=== PATIENT | male | born 1955 | race Caucasian/White ===

== ENCOUNTER 2023-10-05 22:14 | Observation (INO) | payer MEDICARE, SELFPAY ==
--- NOTE | ~2023-10-05 | CT_ITS ---
EXAMINATION: CTA brain carotid DATE: 10/05/2023 22:35 INDICATION: Stroke. TECHNIQUE: Computed tomographic angiography (CTA) of the head was performed with 100 mL Omnipaque-350 intravenous contrast. CTA of the neck was performed with intravenous contrast. Automated exposure co ntrol and iterative reconstruction technique were employed. The dose-length product was 1218.82 mGy-c m. Maximum intensity projection and volume rendered 3D-reconstructions were created by the technologi st on a separate workstation. COMPARISON: Head CT 10/05/2023 FINDINGS: HEAD CTA: There are scattered areas of low attenuation in the cerebral white matter, which is within normal limits for the patient's age. There is no intracranial hemorrhage, acute infarction, or abnorm al intracranial mass lesion. The ventricles are normal in size. The orbits are normal. The paranasal sinuses are clear. The mastoid air cells are normal. Left vertebral artery is dominant. There is no s ignificant stenosis of basilar artery or the posterior cerebral arteries. There is no significant levon nosis of the intracranial internal carotid arteries or anterior or middle middle cerebral arteries. A nterior communicating artery is normal. Posterior communicating arteries are not identified. There is no aneurysm. NECK CTA: The lungs demonstrate mild atelectasis. There are no pathologically enlarged lymph nodes. T here is no significant stenosis of the vertebral arteries. There is plaque in the proximal internal c arotid arteries. There is 0% stenosis of the proximal right internal carotid artery relative to tres l distal artery lumen diameter (NASCET criteria). There is 0% stenosis of the proximal left internal carotid artery relative to normal distal artery lumen diameter. There is moderate cervical spondylosi s. IMPRESSION: 1. Normal aging brain. 2. No aneurysm or significant intracranial arterial stenosis. 3. 0% stenosis of the proximal internal carotid arteries relative to normal distal artery lumen diame ters (NASCET criteria). Reviewed, dictated and finalized at location A. IMPRESSION: 1. Normal aging brain. 2. No aneurysm or significant intracranial arterial stenosis. 3. 0% stenosis of the proximal internal carotid arteries relative to normal dis nav artery lumen diameters (NASCET criteria).
--- NOTE | ~2023-10-05 | XR_ITS ---
XR chest 1V portable DATE: 10/05/2023 22:59 INDICATION: Pain TECHNIQUE: Portable upright AP chest on 10/05/2023 at 2254 hours COMPARISON: None FINDINGS: Heart size is likely within normal limits considering magnification associated with AP proj ection. No pulmonary infiltrate or consolidation, pleural effusion or pulmonary vascular congestion or pneumo thorax is evident. Osteopenia. IMPRESSION: Limited portable study revealing no active cardiopulmonary disease Reviewed, dictated and finalized at location B.
--- NOTE | ~2023-10-05 | CT_ITS ---
EXAMINATION: CT brain wo con DATE: 10/05/2023 22:34 INDICATION: Stroke. TECHNIQUE: Computed tomography (CT) of the head was performed without intravenous contrast. The mA wa s adjusted according to patient size. Iterative reconstruction technique was employed. The dose-lengt h product was 681.00 mGy-cm. COMPARISON: None FINDINGS: There are scattered areas of low attenuation in the cerebral white matter, which is within normal limits for the patient's age. There is no intracranial hemorrhage, acute infarction, or abnorm al intracranial mass lesion. The ventricles are normal in size. The orbits are normal. The paranasal sinuses are clear. The mastoid air cells are normal. IMPRESSION: 1. Normal aging brain. Reviewed, dictated and finalized at location A. IMPRESSION: 1. Normal aging brain.
--- NOTE | ~2023-10-05 | MR_ITS ---
MRI of the brain Clinical History: CVA Technique: Axial and sagittal T1-weighted images were acquired. These were followed by axial T2-weigh ajnell, diffusion weighted, gradient, and FLAIR images. Following intravenous administration of 20 cc Mu ltiHance gadolinium, T1-weighted fat-sat imaging was performed in the axial and coronal planes. Findings: There is no acute infarct, intracranial hemorrhage, or mass lesion. There are mild to moder ate chronic microvascular ischemic changes in the periventricular white matter bilaterally. Ventricles and subarachnoid spaces are mildly dilated. Orbits are unremarkable. Paranasal sinuses and mastoid air cells are clear. Major intracranial flow voids are intact. Sagittal midline structures are intact. No abnormal postcontrast enhancement identified. IMPRESSION: No acute infarct, intracranial hemorrhage, or mass lesion. Moderate chronic microvascular ischemic change and mild generalized atrophy. Reviewed, dictated and finalized at [facility].
--- NOTE | 2023-10-05 22:17 | ECG_ITS ---
Measurements Intervals [place] Rate: 64 P: 54 VA: 221 QRS: -16 QRSD: 89 T: 13 QT: 406 QTc: 420 Interpretive Statements SINUS RHYTHM WITH FIRST DEGREE AV BLOCK SUSPECT PREVIOUS INFERIOR WALL NE ABNORMAL ECG NO PREVIOUS ECG AVAILABLE FOR COMPARISON Electronically Signed On 10-06-2023 12:57:08 CDT by Valentin Hester M.D.
[2023-10-05 22:28] LABS: Basophils Percent Auto 0.4 % (0.2-1.2); Eosinophils Absolute Auto 0.1 K/mm3 (0-0.3); Eosinophils Percent Auto 0.9 % (0-4.4); Hematocrit 42.3 % (42.0-52.0); Hemoglobin 14.2 g/dL (14.0-18.0); Immature Granulocyte Absolute 0.02 K/mm3 (0.00-0.031); Immature Granulocyte Percent A 0.4 % (0-0.5); Lymphocytes Absolute Auto 1.88 K/mm3 (0.9-3.2); Lymphocytes Percent Auto 33.1 % (18.3-44.2); Mean Corpuscular HGB Conc 33.6 g/dl (32-36); Mean Corpuscular Hemoglobin 28.5 pg (26-34); Mean Corpuscular Volume 84.8 fl (80-100); Mean Platelet Volume 8.7 fl (7.4-10.4); Monocytes Absolute Auto 0.7 K/mm3 (0.1-0.6); Monocytes Percent Auto 12.5 % (2.6-8.5); Neutrophils Percent Auto 52.7 % (45.5-73.1); Platelet Count Result 295 k/mm3 (150-375); Red Blood Count 4.99 M/mm3 (4.6-6.20); Red Cell Distribution Width 13.2 % (11.5-14.5); White Blood Count 5.7 K/mm3 (4.5-10.0)
[2023-10-05 22:38] VITALS: BP 176/67; PULSE 65; RESP 18; O2SAT 97
[2023-10-05 22:39] LABS: Prothrombin Time 13.4 Seconds (11.1-14.7)
[2023-10-05 22:40] LABS: Partial Thromboplastin Time 25.2 Seconds (22.3-36.8)
[2023-10-05 22:41] LABS: Alanine Aminotransferase 26 U/L (6-50); Albumin Level 4.2 g/dL (3.5-5.1); Alkaline Phosphatase 102 U/L (38-126); Anion Gap 9 mmol/L (4-12); Aspartate Amino Transferase 32 U/L (17-59); Bilirubin,Total 0.5 mg/dL (0.2-1.3); Blood Urea Nitrogen 24 mg/dL (9-20); Calcium 9.4 mg/dL (8.4-10.2); Carbon Dioxide 23 mmol/L (22-30); Chloride 105 mmol/L (98-107); Estimated Glomerular Filt Rate 50; Glucose 164 mg/dL (65-110); Sodium 137 mmol/L (137-145)
[2023-10-05 22:45] VITALS: BP 176/67; PULSE 68; RESP 16; O2SAT 95
[2023-10-05 22:52] VITALS: BP 154/71; PULSE 63; RESP 18; TEMP 36.2; O2SAT 97
[2023-10-05 22:53] LABS: Troponin I < 0.012 ng/mL (0.000-0.034)
[2023-10-05 23:50] VITALS: BP 155/66; PULSE 62; RESP 15; O2SAT 98
[2023-10-06] VITALS (9 sets, daily range): BP systolic 112–143; BP diastolic 62–84; PULSE 56–72; RESP 15–17; TEMP 36.5–36.6; O2SAT 95–100; BMI 32.3
[2023-10-06 00:44] LABS: Appearance Urine Clear (Clear); Bilirubin Urine Negative (Negative); Blood Urine Negative (Negative); Color Urine Yellow (Yellow); Glucose Urine UA 3+ mg/dL (Negative); Ketones Urine Negative (Negative); Leukocyte Esterase Ur Negative LEU/UL (Negative); Nitrate Urine Negative (Negative); Protein Urine Negative (Negative); Urobilinogen Urine 0.2 mg/dL (<2.0); pH Urine 5.5 (5.0-9.0)
[2023-10-06 01:05] LABS: Add Urine Microscopic? NO
[2023-10-06 01:19] LABS: Influenza A QL RT-PCR Negative (Negative); Influenza B QL RT-PCR Negative (Negative); RSV RNA, RT-PCR Negative (Negative); SARS-CoV-2 RNA PCR Negative (Negative)
--- NOTE | 2023-10-06 01:45 | ED.GENADULT ---
HPI - General Adult General Chief complaint: Neuro Symptoms/Deficit Stated complaint: ams Time Seen by Provider: 10/05/23 23:18 History of Present Illness HPI narrative: This is a 68-year-old male presenting for difficulty speaking. The patient states that last night he barely slept. He then had a [address] back home today. Then when he got home he took a [employer]. At 10:00 p.m.(LKK) he was trying to read his Rosemarie but seemed confused. He was also having trouble finding words. He became anxious and called EMS was brought hospital for evaluation. On arrival patient was having intermittent word-finding difficulty. No other neurologic deficits. Patient is complaining of headache. Denies use of drugs or alcohol. Related Data Home Medications Medication Instructions Recorded Confirmed Jardiance 25 10/05/23 Lantus U-100 Insulin 10/05/23 gabapentin 400 mg capsule 400 mg 10/05/23 lisinopril 40 mg tablet 40 mg PO DAILY 10/05/23 10/05/23 metformin 1,000 mg tablet 1,000 mg PO DAILY 10/05/23 10/05/23 omeprazole 20 mg capsule,delayed mg 10/05/23 10/05/23 release propranolol 60 mg tablet 60 mg PO Q12H 10/05/23 10/05/23 simvastatin 20 mg tablet 20 mg PO DAILY 10/05/23 10/05/23 Allergies Allergy/AdvReac Type Severity Reaction Status Date / Time No Known Allergies Allergy Verified 10/06/23 01:44 [facility] Past Medical History Medical History Diabetes Hypertension Exam Narrative: APPEARANCE: No apparent distress. Head: atraumatic. EYES: EOMI, NOSE: Atraumatic NECK: Trachea midline RESPIRATORY: No increased rate of breathing CARDIOVASCULAR: RRR, ABDOMINAL: Non-distended MUSCULOSKELETAl: No obvious deformities NEURO: Alert. Cranial nerves 2-12 grossly intact. Sensation light touch, motor function cerebellar function intact for 4 extremities. SKIN:: Warm, dry. Normal color PSYCHIATRIC: Normal affect NIH Stroke Scale/Score (NIHSS) from [email or web address] on 10/06/2023 All calculations should be rechecked by clinician prior to use RESULT SUMMARY: 2 points NIH Stroke Scale INPUTS: 1A: Level of consciousness ?> 0 = Alert; keenly responsive 1B: Ask month and age ?> 1 = 1 question right 1C: 'Blink eyes' & 'squeeze hands' ?> 0 = Performs both tasks 2: Horizontal extraocular movements ?> 0 = Normal 3: Visual greenfield ?> 0 = No visual loss 4: Facial palsy ?> 0 = Normal symmetry 5A: Left arm motor drift ?> 0 = No drift for 10 seconds 5B: Right arm motor drift ?> 0 = No drift for 10 seconds 6A: Left leg motor drift ?> 0 = No drift for 5 seconds 6B: Right leg motor drift ?> 0 = No drift for 5 seconds 7: Limb Ataxia ?> 0 = No ataxia 8: Sensation ?> 0 = Normal; no sensory loss 9: Language/aphasia ?> 1 = Mild-moderate aphasia: some obvious changes, without significant limitation 10: Dysarthria ?> 0 = Normal 11: Extinction/inattention ?> 0 = No abnormality Course Vital Signs Vital signs: Vital Signs Pulse Rate 65 10/05/23 22:38 Respiratory Rate 18 10/05/23 22:38 Blood Pressure 176/67 H 10/05/23 22:38 Pulse Oximetry 97 10/05/23 22:38 Oxygen Delivery Room Air 10/05/23 22:38 Temperature 97.1 F L 10/05/23 22:52 Pulse Rate 62 10/05/23 23:50 Respiratory Rate 15 10/05/23 23:50 Blood Pressure 155/66 H 10/05/23 23:50 Pulse Oximetry 98 10/05/23 23:50 Oxygen Delivery Room Air 10/05/23 22:38 Medical Decision Making [facility] Narrative Medical decision making narrative: -Course: 68-year-old male presenting to ED with word-finding difficulty. NIH of 2. No lateralizing neurologic deficits. CT head and CTA unremarkable. Patient re-evaluated and states he is feeling better but still having intermittent word-finding trouble. Discussed tPA with the patient. Given unclear etiology of symptoms and NIH <6 the risks out outweigh possible benefits. Case was discussed with Neurology-Dr. Nieto. Patient be admitted to the hospital for MRI
[2023-10-06] MEDS: ACETAMINOPHEN 500 MG TABLET 1000 MG PO (01:49)
[2023-10-06] MEDS: ASPIRIN 81 MG CHEWABLE TABLET 324 MG PO (01:49)
[2023-10-06 03:06] LABS: Ethanol < 10 mg/dL (<10)
[2023-10-06] MEDS: KETOROLAC 15 MG/ML VIAL (*BKC) IV PUSH (04:47)
--- NOTE | 2023-10-06 06:08 | ADMGEN ---
This patient, Tank Torres, was admitted to Medical Room 255-01. Patient/family oriented to hospital policies and general routines including ID bracelet, bed and alarms, visiting hours, pain management, procedures, bathroom and other care routines, personal items, smoking policy, room service/diet, and visiting hours. Information on how to activate the Rapid Response Team has been discussed. Patient/Family are encouraged to report perceived risks to care and to ask questions if they do not understand what they are told or what they should do.
--- NOTE | 2023-10-06 08:00 | PM.IMHP ---
H&P: HPI History of Present Illness Date/Time: 10/06/23 08:00 Chief Complaint: Aphasia Narrative: This is a 68 year old male with a significant past medical history of Diabetes and Hypertension who presented to the hospital for evaluation of aphasia and altered mental status. Patient was on his way to [place] when they stopped at a hotel for the night. He states that he just got out of the shower, was unable to express himself, he did have some dysphagia, reported a headache, and some confusion. brought him here from the hotel in [place] for further evaluation. He had a similar episode however this was quite a while back around 8 years ago where he had difficulty with speech lasting for 2 hours and it took him nearly all night to get better. Patient denies any fever, chills, nausea, vomiting, diarrhea, abdominal pain, chest pain, shortness a breath, vision changes, lightheadedness, dizziness or weakness. Patient endorses headache on the left side of his head and that he was very sleepy today. Workup in the hospital included a head CT which was negative for any acute intracranial process, showed normal aging brain. Head and neck CTA also showed a normal aging brain, no aneurysm or significant intracranial arterial stenosis. MRI of the brain showed no acute infarct, intracranial hemorrhage, or mass lesion, moderate chronic microvascular ischemic changes were seen. Patient does have sleep apnea and wears his CPAP at night for over 20 years. EKG showing sinus rhythm with first-degree AV block, with a rate of 64, QTC 420. Initial labs essentially unremarkable other than a BUN of 24, creatinine 1.4, EGFR 50. UA was performed which showed a urine specific gravity of 1.040, 3+ urine glucose, otherwise normal. Alcohol level is less than 10. Respiratory panel was negative for influenza a B, RSV, and COVID. Patient was given 324 mg of aspirin, Tylenol and Toradol while in the ED. Neurology following. Patient had an EEG which is still pending. Review of Systems Review of Systems: All systems reviewed & are unremarkable except as noted in HPI and below Constitutional: Constitutional: Reports as per HPI and Reports no additional constitutional complaints Eyes: Eyes: Reports as per HPI and Reports no additional eye complaints ENT: Reports system reviewed and no additional complaints, except as documented and Reports as per HPI Cardiovascular: Cardiovascular: Reports as per HPI and Reports no additional cardiovascular complaints Respiratory: Respiratory: Reports as per HPI and Reports no additional respiratory complaints Gastrointestinal: Gastrointestinal: Reports as per HPI and Reports no additional gastrointestinal complaints Genitourinary: Genitourinary: Reports no additional male genitourinary complaints and Reports as per HPI Musculoskeletal: Musculoskeletal: Reports no additional musculoskeletal complaints and Reports as per HPI Integumentary/Breasts: Skin/Breast: Reports system reviewed and no additional complaints, except as docu and Reports as per HPI Neurologic: Reports system reviewed and no additional complaints, except as documented and Reports as per HPI Psychiatric: Psychiatric: Reports no additional psychiatric complaints and Reports as per HPI [facility] Past Medical History Medical History Diabetes Diverticulosis Failed total left knee replacement GERD (gastroesophageal reflux disease) Hyperlipidemia Hypertension Kidney stones Transient ischemic attack (TIA) Surgical History Surgical History History of kidney surgery History of total left knee replacement History of total right hip replacement Social History Social History Smoking status: Never smoker Alcohol intake: never Substance use: never Do You Feel Safe in your Home?: Yes Lack of
[2023-10-06] MEDS: GABAPENTIN 400 MG CAPSULE PO (09:09)
[2023-10-06] MEDS: SIMVASTATIN 20 MG TABLET PO (09:09)
[2023-10-06] MEDS: EMPAGLIFLOZIN 12.5 MG TABLET PO (09:09)
[2023-10-06] MEDS: PANTOPRAZOLE 40 MG TABLET PO (09:09)
[2023-10-06 09:18] LABS: Hematocrit 40.1 % (42.0-52.0); Hemoglobin 13.5 g/dL (14.0-18.0); Mean Corpuscular HGB Conc 33.7 g/dl (32-36); Mean Corpuscular Hemoglobin 29.1 pg (26-34); Mean Corpuscular Volume 86.4 fl (80-100); Mean Platelet Volume 8.7 fl (7.4-10.4); Platelet Count Result 252 k/mm3 (150-375); Red Blood Count 4.64 M/mm3 (4.6-6.20); Red Cell Distribution Width 13.2 % (11.5-14.5); White Blood Count 5.4 K/mm3 (4.5-10.0)
[2023-10-06 09:24] LABS: Cholesterol 118 mg/dL (0-200); HDL Direct 43 mg/dL; Magnesium 1.8 mg/dL (1.6-2.3); Triglycerides 94 mg/dL (<150)
[2023-10-06 09:25] LABS: Alanine Aminotransferase 24 U/L (6-50); Albumin Level 3.8 g/dL (3.5-5.1); Alkaline Phosphatase 90 U/L (38-126); Anion Gap 4 mmol/L (4-12); Aspartate Amino Transferase 28 U/L (17-59); Bilirubin,Total 0.4 mg/dL (0.2-1.3); Blood Urea Nitrogen 24 mg/dL (9-20); Carbon Dioxide 24 mmol/L (22-30); Chloride 108 mmol/L (98-107); Estimated CRCL calculation 62 ml/min; Estimated Glomerular Filt Rate 60; Glucose 122 mg/dL (65-110); Potassium 4.2 mmol/L (3.4-5.0); Sodium 136 mmol/L (137-145)
[2023-10-06 09:31] LABS: Glucose Point of Care 113 mg/dl (65-105)
[2023-10-06 09:35] LABS: LDL Cholesterol Direct 59 mg/dL
[2023-10-06 09:55] LABS: Thyroid Stimulating Hormone 0.402 uIU/mL (0.465-4.680)
[2023-10-06 10:47] LABS: Hemoglobin A1C 9.2 % (<5.7)
--- NOTE | 2023-10-06 10:58 | WPDNEURCNPN ---
Assessment and Plan Assessment and plan (1) Diabetes: Code(s): E11.9 - Type 2 diabetes mellitus without complications Status: Acute (2) Hypertension: Code(s): I10 - Essential (primary) hypertension Status: Acute (3) Transient ischemic attack (TIA): Code(s): G45.9 - Transient cerebral ischemic attack, unspecified Status: Acute Assessment and Plan: patient developed headache and also had some degree of confusion while he was having difficulty finding words. It sometimes may be difficult to discern whether he is truly confused or he is having frustration due to not being able to express himself. He has had a similar spell 8 years ago. The differential diagnosis of his condition will include cerebrovascular disease or transient ischemic attack or partial complex seizure today with speech disturbance predominantly. Plan Investigations such as CT scan of the brain and CT angiogram of the head and neck did not show any significant abnormalities. I reviewed the films and agree with the findings 3 his creatinine is slightly high at 1.40. He right within 1 hour of onset of the symptoms nevertheless is a overall score was 4 and hence he did tPA particularly since the symptoms were fluctuating. Out suggest an MRI and EEG to look further into this issue. I explained to his that to a vascular AP etiology is probably the most likely cause however differential diagnosis will include possibility of partial complex seizures. Upon his return back to his home if she wishes to take this further with her local neurologist certainly can. For now based upon the findings facial act further. Meanwhile he will cover him for the point review of cerebrovascular disease when review which should include statin and a and the related. Thank you very much. Consult date: 10/06/23 Time Seen: 10:58 Reason for consult: episode of difficulty with speech HPI: Tank Torres is a 68 year old male or trouble 10 [address] from [place] on the way to [place] with his and when he was resting at night around 10:00 a.m. he suddenly had difficulty with the expressing himself. This made him frustrated and he also appears somewhat confused. He did not have any tongue biting or incontinence of urine or loss of consciousness. He also did not have any weakness in his upper or lower limbs. He has had a spell similar to this about 8 years ago where he had speech difficulty lasting for 2 hours. On this particular occasion however it took nearly all night for him to get better. Arrived an hour or so after he had the onset of symptoms and he was evaluated in the emergency room and it did not appear that he was a candidate for tPA. A CT scan of the brain and CT angiogram of the head and neck were performed did not show any abnormalities. He has had a history of kidney cancer and 2012 and had partial nephrectomy. He also has mild chronic kidney disease with creatinine was around 1.4 and admission. There is also history of hip replacement in the past. He is on CPAP for sleep apnea syndrome for more than 20 years. History of diabetes mellitus for several years and the been some changes made in the management due to the high A1c around 9 or so. Patient's was present the time of the evaluation. He is also concerned about having headaches ever since the speech problem started last night. It is unusual for him to have headaches. The pain is mostly felt on the left side of the head. Review of Systems Review of Systems: All systems reviewed & are unremarkable except as noted in HPI and below Constitutional: Constitutional: Reports as per HPI and Reports no additional constitutional complaints Eyes: Eyes: Reports no additional eye complaints ENT: Reports system reviewed and no additional complaints, except as documented Cardiovascular: Cardiovascular: Reports no additional cardiovascular complaints Respiratory: Respiratory: Reports no ad
[2023-10-06 12:23] LABS: Glucose Point of Care 153 mg/dl (65-105)
[2023-10-06 18:19] LABS: Glucose Point of Care 172 mg/dl (65-105)
[2023-10-06] MEDS: INSULIN ASPART (*BKC) 100 UNITS/ML SUB-Q (20:35)
[2023-10-06] MEDS: INSULIN GLARGINE (*BKC) 100 UNITS/ML 38 UNITS SUB-Q (20:35)
[2023-10-06] MEDS: GABAPENTIN 400 MG CAPSULE 800 MG PO (20:36)
[2023-10-06 22:51] LABS: Glucose Point of Care 261 mg/dl (65-105)
[2023-10-07] VITALS: PULSE 65
[2023-10-07 04:00] VITALS: PULSE 61
[2023-10-07 05:43] LABS: Hemoglobin 13.5 g/dL (14.0-18.0); Mean Corpuscular HGB Conc 33.8 g/dl (32-36); Mean Corpuscular Hemoglobin 28.7 pg (26-34); Mean Corpuscular Volume 85.1 fl (80-100); Mean Platelet Volume 8.8 fl (7.4-10.4); Platelet Count Result 235 k/mm3 (150-375); Red Cell Distribution Width 13.1 % (11.5-14.5); White Blood Count 4.7 K/mm3 (4.5-10.0)
[2023-10-07 05:53] LABS: Alanine Aminotransferase 21 U/L (6-50); Albumin Level 3.6 g/dL (3.5-5.1); Alkaline Phosphatase 88 U/L (38-126); Anion Gap 6 mmol/L (4-12); Aspartate Amino Transferase 23 U/L (17-59); Bilirubin,Total 0.4 mg/dL (0.2-1.3); Blood Urea Nitrogen 17 mg/dL (9-20); Calcium 8.6 mg/dL (8.4-10.2); Carbon Dioxide 21 mmol/L (22-30); Chloride 108 mmol/L (98-107); Estimated CRCL calculation 74 ml/min; Estimated Glomerular Filt Rate > 60; Glucose 145 mg/dL (65-110); Potassium 3.9 mmol/L (3.4-5.0); Sodium 135 mmol/L (137-145)
[2023-10-07 06:00] VITALS: BP 119/75; PULSE 62; RESP 14; TEMP 36.5; O2SAT 98
--- NOTE | 2023-10-07 07:34 | PM.DS ---
DS: Admitting Diagnosis Discharge Date 10/07/23 Admitting Diagnosis Aphasia hypertension diabetes mellitus, type 2 hyperlipidemia GERD DS: Discharge Diagnosis Discharge Diagnosis (1) Aphasia: Code(s): R47.01 - Aphasia Status: Acute (2) Hypertension: Code(s): I10 - Essential (primary) hypertension Status: Acute (3) Diabetes: Code(s): E11.9 - Type 2 diabetes mellitus without complications Status: Acute (4) Hyperlipidemia: Code(s): E78.5 - Hyperlipidemia, unspecified Status: Acute (5) GERD (gastroesophageal reflux disease): Code(s): K21.9 - Gastro-esophageal reflux disease without esophagitis Status: Acute DS: Summary Hospital Course Reason for hospitalization: Aphasia hypertension diabetes mellitus, type 2 hyperlipidemia GERD Hospital Course: 10/06/23: This is a 68 year old male with a significant past medical history of Diabetes and Hypertension who presented to the hospital for evaluation of aphasia and altered mental status.? Patient was on his way to [place] when they stopped at a hotel for the night.? He states that he just got out of the shower, was unable to express himself, he did have some dysphagia, reported a headache, and some confusion.? brought him here from the hotel in [place] for further evaluation.? He had a similar episode however this was quite a while back around 8 years ago where he had difficulty with speech lasting for 2 hours and it took him nearly all night to get better.? Patient denies any fever, chills, nausea, vomiting, diarrhea, abdominal pain, chest pain, shortness a breath, vision changes, lightheadedness, dizziness or weakness.? Patient endorses headache on the left side of his head and that he was very sleepy today.? Workup in the hospital included a head CT which was negative for any acute intracranial process, showed normal aging brain.? Head and neck CTA also showed a normal aging brain, no aneurysm or significant intracranial arterial stenosis.? MRI of the brain showed no acute infarct, intracranial hemorrhage, or mass lesion, moderate chronic microvascular ischemic changes were seen.? Patient does have sleep apnea and wears his CPAP at night for over 20 years.? EKG showing sinus rhythm with first-degree AV block, with a rate of 64, QTC 420.? Initial labs essentially unremarkable other than a BUN of 24, creatinine 1.4, EGFR 50.? UA was performed which showed a urine specific gravity of 1.040, 3+ urine glucose, otherwise normal.? Alcohol level is less than 10.? Respiratory panel was negative for influenza a B, RSV, and COVID.? Patient was given 324 mg of aspirin, Tylenol and Toradol while in the ED. Neurology following.? Patient had an EEG which is still pending.? 10/07/23: No new complaints today. Labs today reveal a Hgb 13.5, Na+ 135, Bicarb 21, BG ranging 145-261, liver enzymes are normal. Patient is stable for discharge at this time. He will need to follow up with PCP in 1 week and also get an appointment with a local neurologist in [place]. EEG results are normal. Patient is stable for discharge today. Final diagnosis: TIA, hypertension Status at Discharge Cognitive/behavioral status at discharge: alert and oriented x4 Functional status at discharge: independent ambulation Overall status at discharge: patient is progressing back to baseline Time Spent with Patient Time attestation: Total time spent providing and/or coordinating discharge services: Time spent: Greater than 30 minutes Exam Narrative: General: In no acute distress, well nourished Head: atraumatic, no encephalopathy, reports mild headache Eyes: EOMI, PERRLA, sclera clear ENT: moist mucous membranes, nasal passages clear Neck: supple, no JVD, no adenopathy, trachea midline, reports neck pain Cardiac: Normal S1 and S2.RRR No murmur, gallops or friction rubs, peripheral pulses intact. Respiratory: Lungs clear to auscultation, no adventitious lung sounds, curre
[2023-10-07 08:00] VITALS: PULSE 61
[2023-10-07 08:18] LABS: Glucose Point of Care 127 mg/dl (65-105)
[2023-10-07] MEDS: EMPAGLIFLOZIN 12.5 MG TABLET PO (08:20)
[2023-10-07 08:21] VITALS: PULSE 62
[2023-10-07] MEDS: PROPRANOLOL HCL 60 MG CAPSULE CR PO (08:21)
[2023-10-07] MEDS: metFORMIN HCL 500 MG TABLET 1000 MG PO (08:21)
[2023-10-07] MEDS: lisinopriL 20 MG TABLET 40 MG PO (08:21)
[2023-10-07] MEDS: GABAPENTIN 400 MG CAPSULE PO (08:22)
[2023-10-07] MEDS: SIMVASTATIN 20 MG TABLET PO (08:22)
[2023-10-07] MEDS: PANTOPRAZOLE 40 MG TABLET PO (08:22)
[2023-10-07 08:54] LABS: Estimated CRCL calculation 47 ml/min; Estimated Glomerular Filt Rate 43
[2023-10-07 11:55] LABS: Glucose Point of Care 190 mg/dl (65-105)
--- NOTE | 2023-10-07 11:59 | WPDNEUROLOGY ---
Neurology EEG Report General Information Date of Study: 10/06/23 TEST Eeg DIAGNOSIS TIA CONDITION OF RECORDING drowsy and sleep EEG NUMBER [id number] CLINICAL HISTORY patient reported he had an episode last night when he became aphasic and became also confused the whole episode lasted for several hours but seems to be back to baseline on the day of EEG EEG DESCRIPTION background rhythm consists of low-voltage 15 to 18 hertz per 2nd beta admixed with low to medium voltage 6 to 7 hertz per 2nd theta activity during drowsiness. Bilateral symmetrical sleep activity noted with symmetrical sleep spindles. Intermittent EKG artifact also noted throughout the tracing. Hyperventilation not done. Photic stimulation not done. Non paroxysmal. Nonfocal. Nonlateralizing. IMPRESSION No significant abnormalities noted
--- NOTE | 2023-10-07 15:00 | PCCCNOTE ---
On 10/07/23, the student, Jacqueline Valdes, provided care and completed [facility] documentation on this patient. I have reviewed the student's documentation and agree with the findings.
[2023-10-09 09:28] LABS: Glucose Point of Care 179 mg/dl (65-105)
== END 2023-10-07 13:20 | disposition home or self-care (01) ==
LOC: ANHED 10-06 01:57 → ANH2MED 10-07 07:34
PROVIDERS: Nurse Practitioner Acute Care; Admitting Provider Internal Medicine; Emergency Provider Emergency Medicine; Visit Provider Internal Medicine
DX: G45.9 Transient cerebral ischemic attack, unspecified (principal); R29.702 NIHSS score 2; R47.01 Aphasia; I12.9 Hypertensive chronic kidney disease with stage 1 through stage 4 chronic kidney disease, or unspecified chronic kidney disease; E11.22 Type 2 diabetes mellitus with diabetic chronic kidney disease; N18.9 Chronic kidney disease, unspecified; K21.9 Gastro-esophageal reflux disease without esophagitis; E78.5 Hyperlipidemia, unspecified; R94.31 Abnormal electrocardiogram [ECG] [EKG]; Z20.822 Contact with and (suspected) exposure to COVID-19; R13.10 Dysphagia, unspecified; G47.33 Obstructive sleep apnea (adult) (pediatric); Z99.89 Dependence on other enabling machines and devices; Z96.652 Presence of left artificial knee joint; Z96.641 Presence of right artificial hip joint; Z85.528 Personal history of other malignant neoplasm of kidney; Z90.5 Acquired absence of kidney; Z86.73 Personal history of transient ischemic attack (TIA), and cerebral infarction without residual deficits; Z79.84 Long term (current) use of oral hypoglycemic drugs; Z79.4 Long term (current) use of insulin; Z79.899 Other long term (current) drug therapy
CPT/HCPCS: 36415; 70450; 70496; 70498; 70553; 71045; 80053; 80061; 80307; 81003; 82948; 83036; 83735; 84443; 84484; 85025; 85027; 85610; 85730; 87637; 93005; 95816; 96374; 99285; A9270; A9577; G0378; J1815; J1885; Q9967